=== PATIENT | female | born 1985 | race Caucasian/White ===

== ENCOUNTER → 2022-07-30 16:02 | Outpatient (CLI) | payer OTHER, SELFPAY ==
--- NOTE | ~2022-07-30 | CT_ITS ---
EXAMINATION: CT sinus wo con DATE: 07/30/2022 16:14 INDICATION: Chronic sinusitis TECHNIQUE: Computed tomography (CT) of the paranasal sinuses was performed without contrast. Iterativ e reconstruction technique was employed. Exam dose: 284.43 mGy-cm total exam DLP. COMPARISON: None FINDINGS: There is rightward deviation of the nasal septum. There is soft tissue prominence of the na mervat turbinates, especially in the left inferior nasal turbinate. Intralamellar cell of both middle nasal turbinates The maxillary ostium and infundibulum are virtually completely opacified by soft tissue thickening. There is mild septal soft tissue thickening of the ethmoid air cells. There is moderate mucoperiostea l thickening of both maxillary sinuses. The frontal and sphenoid sinuses are clear. The mastoid air cells are normally developed and aerated. Middle and inner ear apparatus appear normal. 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 Reviewed, dictated and finalized at [facility]. 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
== END ==
PROVIDERS: PCP Family Medicine; Visit Provider Family Medicine
DX: J32.9 Chronic sinusitis, unspecified (principal); J34.2 Deviated nasal septum
CPT/HCPCS: 70486